=== PATIENT | female | born 1985 | race Caucasian/White ===

== ENCOUNTER → 2021-01-25 | Outpatient (CLI) | payer BC ==
--- NOTE | 2021-01-26 14:26 | MM ---
Reason for exam: screening (asymptomatic). Baseline mammogram. History: Family history of breast cancer in mother at age 39. Physical Findings: Nurse did not find any significant physical abnormalities on exam. MG 3D Screening Mammo W/Cad Bilateral CC, MLO, and XCCL view(s) were taken. The breast tissue is heterogeneously dense. This may lower the sensitivity of mammography. There is no discrete abnormality. ASSESSMENT: Negative, BI-RAD 1 RECOMMENDATION: Routine screening mammogram of both breasts at age 40.
== END | disposition home or self-care (01) ==
LOC: RADMAMWWP 11:01
PROVIDERS: ATTEND Family Medicine
DX: Z12.31 Encounter for screening mammogram for malignant neoplasm of breast (principal); Z80.3 Family history of malignant neoplasm of breast
CPT/HCPCS: 77063; 77067

== ENCOUNTER → 2023-02-06 | Outpatient (CLI) | payer BC ==
--- NOTE | 2023-02-06 14:58 | CT ---
EXAMINATION TYPE: CT abdomen wo/w con DATE OF EXAM: 02/06/2023 COMPARISON: NONE HISTORY: 38-year-old female R10.9, RUQ abdominal pain TECHNIQUE: Contiguous axial scanning of the abdomen before and after administration of 100 ml Isovue 300 IV contrast. Delayed images through the kidneys and coronal/sagittal reconstructions performed. CT DLP: 770.2 mGycm Automated exposure control for dose reduction was used. FINDINGS: LUNG BASES: No significant abnormality is appreciated. LIVER/GB: No significant abnormality is appreciated. PANCREAS: No significant abnormality is seen. SPLEEN: No significant abnormality is seen. ADRENALS: No significant abnormality is seen. KIDNEYS: No significant abnormality is seen. BOWEL: Nondilated small bowel. Moderate stool burden with normal appendix. The visualized sigmoid div erticulosis. LYMPH NODES: No significant abnormality is seen. OTHER: No significant abnormality is seen. PELVIS: Not imaged. BONES: No significant abnormality is seen. IMPRESSION: MODERATE STOOL BURDEN. PARTIALLY VISUALIZED SIGMOID DIVERTICULOSIS. NO SPECIFIC ABNORMALITY IDENTIFIE D.
== END | disposition home or self-care (01) ==
LOC: RADCTMAIN 10:30
PROVIDERS: ATTEND Family Medicine
DX: R10.11 Right upper quadrant pain (principal); R19.5 Other fecal abnormalities; K57.30 Diverticulosis of large intestine without perforation or abscess without bleeding
CPT/HCPCS: 74170; Q9967

== ENCOUNTER 2023-09-26 10:20 | Day surgery (SDC) | payer BC ==
[~2023-09-26 10:20] MED LIST: LACTATED RINGERS 1,000 ML BAG ONE
[2023-09-26] MEDS ORDERED: PROPOFOL 10 MG/ML 20 ML VIAL IV ONE (11:01)
[2023-09-26] MEDS ORDERED: ONDANSETRON 4 MG/2 ML VIAL ONE (12:01)
== END 2023-09-26 12:49 | disposition home or self-care (01) ==
LOC: ORWHC2ENDO 10:20
PROVIDERS: ATTEND Surgery Plastic and Reconstructive Surgery
DX: K29.50 Unspecified chronic gastritis without bleeding (principal); K44.9 Diaphragmatic hernia without obstruction or gangrene; K21.00 Gastro-esophageal reflux disease with esophagitis, without bleeding; K64.8 Other hemorrhoids; Z98.890 Other specified postprocedural states
CPT/HCPCS: 43239; 45378; 81025; 88305

== ENCOUNTER → 2023-10-03 | Outpatient (CLI) | payer BC ==
--- NOTE | 2023-11-05 15:57 | US ---
Patient: Sharifa Curry Ordering Physician: Unknown, Unknown ID: [id number] Phone, Pager: Phone: N/A Pager: N/A : 1985 Age/Gender: 38Y, N/A Primary Location: N/A Procedure: US gallbladder Study Date: 10/03/2023 7:16:00 AM EXAMINATION TYPE: US gallbladder DATE OF EXAM: 10/13/2023 9:10 PM SITE: [facility] CLINICAL INDICATION: Right upper quadrant pain COMPARISON: None TECHNIQUE: Limited exam of the right upper quadrant with multiple grayscale and color doppler ultrasound images of the abdomen obtained utilizing transabdominal imaging. FINDINGS: PANCREAS: The visualized portions of the pancreatic head, neck and body are unremarkable. LIVER: The liver demonstrates a normal echotexture. There is no evidence of dilated ducts, cystic structures , or solid mass. GALLBLADDER: The gallbladder is without evidence of wall thickening, pericholecystic fluid, or cholelithiasis. The common duct measures approximately 4 mm. Per financial market dealer, the sonographic Wallace's sign was negative . RIGHT KIDNEY: The right kidney measures 12.1 x 5.9 x 4.1 cm cm, without evidence of hydronephrosis, shadowing calcu bridget, or contour deforming solid mass. Renal parenchymal echogenicity is within normal limits. IVC: The visualized portions of the inferior vena cava demonstrate a normal course and caliber. FREE FLUID: No free fluid is suggested in the abdomen. OTHER: No significant. IMPRESSION: No sonographic evidence for acute process.
--- NOTE | 2023-11-06 13:05 | NM ---
Site ID [facility] Patient Sharifa Curry ID [id number] Order # Procedure Hepatobiliary EXAMINATION TYPE: NM hepatobiliary w CCK DATE OF EXAM: 10/03/2023 2:39 PM COMPARISON: THIS EXAM WAS READ DURING PACS DOWNTIME, NO PRIORS AVAILABLE. CLINICAL INDICATION:R.10.11 RUQ PAIN 5.06 mCi Tc99m mebrofenin at 0816 1.45mcg CCK 0930 PM TECHNIQUE: The patient was given 5.06 mCi of Technetium 99m-Mebrofenin as a radiotracer and multiple scintigraphic images were obtained of the abdomen. Gallbladder function was also assessed after the administration of 1.45 mcg of Kinevac and additional scintigraphic images were obtained of the abdome n. A region of interest was drawn over the gallbladder and a timing activity curve was generated. The gallbladder ejection fraction was calculated. Kinevac: 1.45 mcg FINDINGS: Normal uptake of radiotracer was identified within the liver with excretion into the hepatic and comm on biliary ducts within 8 minutes. There was normal progressive washout of the liver over the course of the study. Radiotracer uptake within the gallbladder at 120sec as well as small bowel activity was identified at 14 minutes. Patient reported after . Maximum calculated gallbladder ejection fraction is: 73% at 30 minutes (Normal gallbladder ejection fraction is > 35%) IMPRESSION: 1. Normal hepatobiliary scan. 2. Normal ejection fraction.
== END | disposition home or self-care (01) ==
LOC: RADNMMAIN 12:00
PROVIDERS: ATTEND Surgery Plastic and Reconstructive Surgery
DX: R10.11 Right upper quadrant pain (principal)
CPT/HCPCS: 76705; 78227; A9537; J2805